=== PATIENT | male | born 1960 | race Caucasian/White ===

== ENCOUNTER 2018-03-29 12:33 | Observation (INO) | payer OTHER ==
[~2018-03-29] VITALS: Ht 177.8 cm; Wt 94.1 kg
[~2018-03-29 12:33] MED LIST: KEFLEX500 MG PO
[2018-03-29 13:23] LABS: BASOPHIL (%) 0.6 % (0-1); BASOPHIL COUNT 0.1 K/uL (0-0.1); EOSINOPHIL (%) 0.7 % (0-5); EOSINOPHIL COUNT 0.1 K/uL (0-0.3); HEMATOCRIT 41.7 % (38.0-50.0); IMMATURE GRANULOCYTE (%) 0.3 % (0.0-0.7); LYMPHOCYTE (%) 29.6 % (15-42); LYMPHOCYTE COUNT 3.7 K/uL (1.0-2.8); MCV 88.9 FL (86-99); MONOCYTE (%) 6.1 % (3-12); MONOCYTE COUNT 0.8 K/uL (0-0.8); NEUTROPHIL (%) 62.7 % (45-76); NEUTROPHIL COUNT 7.8 K/uL (1.8-6.4); PLATELET COUNT 289 K/uL (156-360); RBC DIS.WIDTH-CV 11.9 % (11.8-14.6); RBC DIS.WIDTH-SD 38.5 % (39-53); RED BLOOD COUNT 4.69 M/uL (4.00-5.50); WHITE BLOOD COUNT 12.4 K/uL (4.1-10.2)
[2018-03-29 13:33] LABS: ALBUMIN 4.8 g/dL (3.2-4.8)
[2018-03-29 13:34] LABS: CHLORIDE 106 mEq/L (99-109); POTASSIUM 3.9 mEq/L (3.7-5.4); SODIUM 139 mEq/L (136-147)
[2018-03-29 13:36] LABS: GLUCOSE 97 mg/dL (70-99); TOTAL PROTEIN 8.2 g/dL (6.4-8.3)
[2018-03-29 13:38] LABS: TOTAL BILIRUBIN 1.8 mg/dL (0.0-1.0)
[2018-03-29 13:40] LABS: ALKALINE PHOSPHATASE 66 IU/L (3-129); CREATININE 0.9 mg/dL (0.6-1.3); GFR ESTIMATE (CALCULATED) > 59 mL/min/ (58.99-99999)
[2018-03-29 13:41] LABS: UREA NITROGEN (BUN) 18 mg/dL (9-23)
[2018-03-29 13:42] LABS: AST (GOT) 24 IU/L (2-34)
[2018-03-29 13:43] LABS: ALT (GPT) 20 IU/L (3-49); LIPASE 32 U/L (1.0-51.0)
[2018-03-29 13:44] LABS: TROP-I INTERPRETATION NEGATIVE; TROPONIN-I < 0.01 ng/mL (0.0-0.30)
[2018-03-29 17:21] LABS: APPEARANCE CLEAR ((CLEAR)); BILIRUBIN NEGATIVE; BLOOD NEGATIVE; COLOR YELLOW ((YELLOW)); GLUCOSE (STRIP) NEGATIVE; KETONES 20; LEUKOCYTES NEGATIVE; NITRITE NEGATIVE; PROTEIN (STRIP) 30; UCUL ADDED? NO
[2018-03-29 17:22] LABS: SPECIFIC GRAVITY > 1.060 (1.000-1.030)
[2018-03-29 17:51] VITALS: BP 131/92
[2018-03-29 19:48] VITALS: BP 153/88
[2018-03-30 00:16] VITALS: BP 115/72
[2018-03-30 04:51] VITALS: BP 127/73
[2018-03-30 08:12] VITALS: BP 118/72
[2018-03-30 11:52] VITALS: BP 149/80
[2018-03-30 14:12] LABS: TROP-I INTERPRETATION NEGATIVE; TROPONIN-I 0.02 ng/mL (0.0-0.30)
[2018-03-30] MEDS ORDERED: FAMOTIDINE20 MG PO (14:17)
== END 2018-03-30 15:23 | disposition home or self-care (01) ==
LOC: EME 12:33 → EDOF 15:08 → 4SOUTH 15:08 → EDOF 15:08 → ENRESERV 15:10 → 4SOUTH 17:44
PROVIDERS: Emergency Medicine; Hospitalist
DX: R10.12 Left upper quadrant pain (principal); D72.829 Elevated white blood cell count, unspecified; R17 Unspecified jaundice; R55 Syncope and collapse; R07.89 Other chest pain; J44.9 Chronic obstructive pulmonary disease, unspecified; F10.11 Alcohol abuse, in remission
CPT/HCPCS: 71045; 71275; 74176; 80053; 81003; 83690; 84484; 85025; 93005; 99281; 99285; G0378; J2405; J3010; J7030